=== PATIENT | male | born 1960 ===

== ENCOUNTER 2024-07-21 11:59 | Outpatient (REF) | payer MEDICAID, SELFPAY ==
[2024-07-21 20:06] LABS: ALT 33 U/L (16-63); AST 28 U/L (15-37); Albumin 4.3 g/dL (3.4-5.0); Alkaline Phosphatase 67 U/L (46-116); Anion Gap 4.1 mmol/L (3-11); BUN 16 mg/dL (7-18); Bilirubin, Total 0.43 mg/dL (0.2-1.0); CO2 30.9 mmol/L (21.0-32.0); CREATININE 0.9 mg/dL (0.70-1.30); Calcium 9.8 mg/dL (8.5-10.1); Chloride 103 mmol/L (98-107); Estimated GFR 95.97 (mL/min/1.73m2); Glucose 105 mg/dL (74-106); Potassium 4.4 mmol/L (3.5-5.1); Sodium 138 mmol/L (136-145); Total Protein 7.3 g/dL (6.4-8.2)
== END 2024-07-21 12:00 | disposition home or self-care (01) ==
LOC: NCHCN 11:59
PROVIDERS: PCP Nurse Practitioner Family; Visit Provider Nurse Practitioner Family
DX: R73.03 Prediabetes (principal)
CPT/HCPCS: 80053

== ENCOUNTER 2024-12-22 13:49 | Outpatient (REF) | payer MEDICAID, SELFPAY ==
[2024-12-22 20:24] LABS: Glucose Negative (Negative)
== END 2024-12-22 13:50 | disposition home or self-care (01) ==
LOC: NCHCN 13:49
PROVIDERS: PCP Nurse Practitioner Family; Visit Provider Nurse Practitioner Family
DX: R30.0 Dysuria (principal)
CPT/HCPCS: 81003